=== PATIENT | female | born 1950 | race Caucasian/White ===

== ENCOUNTER 2017-03-18 10:48 | Day surgery (SDC) | payer BC ==
[2017-03-16 11:49] VITALS: BMI 23.2
[~2017-03-18 10:48] MED LIST: LACTATED RINGERS 1,000 ML IV SCH
[2017-03-18 11:45] VITALS: RESP 16; TEMP 97
[2017-03-18] MEDS ORDERED: LIDOCAINE 1% 20 ML VIAL (10MG/ML) FOR IV START INTRADERMA ONE (11:47)
[2017-03-18] MEDS ORDERED: LIDOCAINE 1% INJ 10MG/ML (20 ML MDV) ONE (12:25)
[2017-03-18] MEDS ORDERED: PROPOFOL 10 MG/ML 20 ML VIAL IV ONE (12:25)
--- NOTE | 2017-03-18 12:31 | P.PCN ---
Date of Procedure: 03/18/17 Procedure(s) Performed: BRIEF HISTORY: Patient is a 66-year-old, pleasant, white female, scheduled for an elective upper endoscopy as a part of evaluation of long-standing history of gastroesophageal reflux symptoms. She is presently on Zantac 150 milligrams twice daily and doing well. She occasionally has break through symptoms. PROCEDURE PERFORMED: Esophagogastroduodenoscopy with biopsy. PREOPERATIVE DIAGNOSIS: Long-standing history of GERD. IV sedation per anesthesia. PROCEDURE: After informed consent was obtained, the patient was brought into the endoscopy unit. IV sedation was administered by Anesthesia under continuous monitoring. Initially the Olympus GIF-140 video endoscope was inserted into the mouth. Esophagus intubated without any difficulty. It was gradually advanced into the stomach and duodenum and carefully examined. The bulb and the second part of the duodenum appeared normal. The scope at this time was withdrawn to the stomach, adequately insufflated with air, and upon careful examination, mucosa of the antrum, had mild gastritis and biopsies were done from this area. The body, cardia and the fundus appeared normal. The scope was then withdrawn into the esophagus. The GE junction was located at 37 cm from the incisors. There were 2 superficial erosions at the GE junction consistent with LA grade a reflux esophagitis. The rest of the esophagus appeared normal and the patient tolerated the procedure well. IMPRESSION: 1. Mild antral gastritis. 2. Small hiatal hernia and LA grade A reflux esophagitis. RECOMMENDATIONS: The findings of this examination were discussed with the patient as well as a family. She was advised to follow with the biopsy results. She can continue with Zantac 150 milligrams twice daily and follow antireflux measures.
[2017-03-18 12:59] VITALS: BP 124/75; PULSE 76
== END 2017-03-18 13:41 | disposition home or self-care (01) ==
LOC: ORWHC2ENDO 10:48
PROVIDERS: ATTEND Internal Medicine Gastroenterology
DX: K21.0 Gastro-esophageal reflux disease with esophagitis (principal); K29.50 Unspecified chronic gastritis without bleeding; K44.9 Diaphragmatic hernia without obstruction or gangrene; Z79.899 Other long term (current) drug therapy; Z88.5 Allergy status to narcotic agent; Z88.0 Allergy status to penicillin; Z88.2 Allergy status to sulfonamides
CPT/HCPCS: 88305; 88342; 43239; J2001; J2704

== ENCOUNTER → 2018-07-07 | Outpatient (CLI) | payer BC ==
--- NOTE | 2018-07-07 16:50 | XR ---
EXAMINATION TYPE: PA chest and right rib series DATE OF EXAM: 07/07/2018 COMPARISON: None HISTORY: 67-year-old female with peritoneal after fall downstairs TECHNIQUE: 5 views FINDINGS: The cardiomediastinal silhouette, aorta, and pulmonary vasculature are within normal limits. Lungs an d pleural spaces are clear. No displaced right rib fracture seen. IMPRESSION: No acute cardiopulmonary process. No displaced right rib fractures seen.
== END | disposition home or self-care (01) ==
LOC: RADXRMAIN 14:20
PROVIDERS: ATTEND Physician Assistant
DX: R07.81 Pleurodynia (principal)